=== PATIENT | female | born 1970 | race Caucasian/White ===

== ENCOUNTER 2021-08-06 09:36 | Emergency (ER) | payer MEDICAID ==
[~2021-08-06] VITALS: Ht 167.6 cm; Wt 90.0 kg
[2021-08-06] MEDS ORDERED: metformin (09:54)
[2021-08-06] MEDS ORDERED: KETOROLAC 60MG/2ML VIAL IM ONE (11:00)
[2021-08-06] MEDS ORDERED: LIDOCAINE 5% PATCH TOP SCH (11:00)
[2021-08-06] MEDS ORDERED: METHOCARBAMOL 750MG TABLET PO SCH (11:00)
[2021-08-06 11:19] VITALS: BP 126/94
[2021-08-06] MEDS ORDERED: BACITRACIN/POLYMYXIN B SULFATE OINT 15GM TOP ONE (12:30)
== END 2021-08-06 12:58 | disposition left against medical advice (07) ==
LOC: ER 09:45
DX: M54.50 Low back pain, unspecified (principal); E11.9 Type 2 diabetes mellitus without complications; I10 Essential (primary) hypertension; Z90.49 Acquired absence of other specified parts of digestive tract; Z98.51 Tubal ligation status
CPT/HCPCS: 71045; 72070; 72100; 73502; 73562; 93005; 96372; 99284; J1885